=== PATIENT | female | born 1990 | race Caucasian/White ===

== ENCOUNTER 2022-05-13 16:22 | Emergency (ER) | payer MEDICAID, SELFPAY ==
[~2022-05-13] VITALS: Ht 167.6 cm; Wt 68.2 kg
[~2022-05-13 16:22] MED LIST: NOCURR
[2022-05-13] MEDS ORDERED: MAG HYDROX/AL HYDROX/SIMETH ES 30 ML SUSPENSION UDCUP PO ONE (17:30)
[2022-05-13] MEDS ORDERED: LIDOCAINE 2% VISCOUS 15 ML SOLUTION UDCUP PO ONE (17:30)
[2022-05-13] MEDS ORDERED: OXYMETAZOLINE HCL 0.05% 15 ML NASAL SPRAY NASAL ONE (18:15)
[2022-05-13 18:44] VITALS: BP 126/73
== END 2022-05-13 18:51 | disposition home or self-care (01) ==
LOC: EMS 16:22
DX: U07.1 COVID-19 (principal); M19.90 Unspecified osteoarthritis, unspecified site
CPT/HCPCS: 99283; 99284